=== PATIENT | male | born 1990 | race Caucasian/White ===

== ENCOUNTER 2020-07-14 16:33 | Emergency (ER) | payer OTHER ==
[~2020-07-14] VITALS: Ht 185.4 cm; Wt 97.7 kg
[2020-07-14 16:34] VITALS: BP 140/87
[2020-07-15] MEDS ORDERED: MULT-1290 PEG (14:13)
== END 2020-07-14 17:48 | disposition left against medical advice (07) ==
LOC: EMS 16:37
DX: R51.9 Headache, unspecified (principal); Z53.21 Procedure and treatment not carried out due to patient leaving prior to being seen by health care provider

== ENCOUNTER 2020-07-15 13:47 | Emergency (ER) | payer OTHER ==
[~2020-07-15] VITALS: Ht 185.4 cm; Wt 98.0 kg
[2020-07-15] MEDS ORDERED: MULT-1290 PEG (14:13)
[2020-07-15 14:47] VITALS: BP 140/88
== END 2020-07-15 14:50 | disposition home or self-care (01) ==
LOC: EMS 13:50
DX: S09.90XA Unspecified injury of head, initial encounter (principal); F12.90 Cannabis use, unspecified, uncomplicated; X58.XXXA Exposure to other specified factors, initial encounter; Y93.89 Activity, other specified; Y92.89 Other specified places as the place of occurrence of the external cause; Y99.8 Other external cause status
CPT/HCPCS: 99281; 99282; Z7502